=== PATIENT | female | born 1970 | race Caucasian/White ===

== ENCOUNTER 2021-05-10 16:04 | Outpatient (CLI) | payer OTHER, SELFPAY ==
--- NOTE | ~2021-05-10 | XR_ITS ---
XR lumbar spine 6V w bending DATE: 05/10/2021 16:38 INDICATION: Low back pain, sciatica TECHNIQUE: AP, lateral, coned lateral lumbosacral, bilateral oblique and flexion and extension latera l standing views. COMPARISON: None FINDINGS: There is normal alignment of the lumbar spine without instability on flexion or extension. There is a transitional fifth lumbar vertebra with sacralization pseudoarthrosis on the left and lumb arization on the right. This may be a source of chronic low back pain. Lumbar and lumbosacral interspaces appear well preserved. No spondylolisthesis. No fracture or bone destruction. Included lower thoracic and lumbar pedicles are intact. The sacroiliac joints are intact. IUD is noted overlying the mid pelvis. IMPRESSION: Transitional L5 lumbosacral vertebra Reviewed, dictated and finalized at location B. [employer]
== END 2021-05-10 16:05 ==
PROVIDERS: PCP Family Medicine; Visit Provider Family Medicine
DX: M54.42 Lumbago with sciatica, left side (principal)
CPT/HCPCS: 72114

== ENCOUNTER 2023-10-12 10:51 | Outpatient (CLI) | payer OTHER, SELFPAY ==
--- NOTE | ~2023-10-12 | MMUS_ITS ---
EXAMINATION: MM diag antonia implant BI w polly, US breast RT limited, US breast LT complete HISTORY: Possible implant rupture TECHNIQUE: 3-D tomosynthesis images of the bilateral breasts were performed and synthetic 2-D images were generated. CAD analysis was submitted and interpreted. High resolution limited bilateral breast ultrasound was performed. COMPARISON: 07/12/2011 BREAST PARENCHYMAL COMPOSITION:Not Dense. There are scattered areas of fibroglandular density. FINDINGS: MAMMOGRAPHIC FINDINGS: There is probable asymmetric fibroglandular tissue at the posterior upper, inner left breast, which r elatively effaces the spot compression. There is a 5 mm low-density circumscribed round mass at the i nner right breast. No suspicious mammographic abnormality seen. No distortion or suspicious microcalc ification seen. No overt mammographic evidence for implant rupture. ULTRASOUND: At the right wrist 3:00 position, 5 cm from the nipple, there is a 5 mm circumscribed wider than tall hypoechoic mass without posterior shadowing. This correlates with the mammographic finding, and is m ost consistent with a benign lesion. At the left breast 10:00 position, 15 cm from the nipple, there is a 2.2 x 1.3 x 0.5 cm lobulated pro bably hyperechoic region, which probably correlates with asymmetric fibroglandular tissue seen mammog raphically. No definite evidence of implant rupture seen. IMPRESSION: No definite mammographic evidence for malignancy. Probable benign findings in both breasts, as above . Six-month follow-up bilateral mammography advised to assure stability. No distinct evidence for implant rupture. Breast MR could be considered for further evaluation for im plant rupture, as indicated. BI-RADS category 3, probably benign findings. Reviewed, dictated and finalized at location M. IMPRESSION: No definite mammographic evidence for malignancy. Probable benign findings in both breasts, as above. Six-month follow-up bilateral mammography advised to as sure stability. No distinct evidence for implant rupture. Breast MR could be considered for fur ther evaluation for implant rupture, as indicated. BI-RADS category 3, probably benign findings. IMPRESSION: No definite mammographic evidence for malignancy. Probable benign findings in both breasts, as above. Six-month follow-up bilateral mammography advised to as sure stability. No distinct evidence for implant rupture. Breast MR could be considered for fur ther evaluation for implant rupture, as indicated. BI-RADS category 3, probably benign findings.
== END 2023-10-12 10:52 ==
PROVIDERS: PCP Family Medicine; Visit Provider Physician Assistant Medical
DX: N64.89 Other specified disorders of breast (principal); Z98.82 Breast implant status
CPT/HCPCS: 76641; 76642; 77062; 77066; G0279

== ENCOUNTER 2023-11-12 11:48 | Outpatient (CLI) | payer OTHER, SELFPAY ==
--- NOTE | ~2023-11-12 | MR_ITS ---
MR breast BI wo/w con 11/12/2023 14:29 CDT INDICATION: Evaluate breast implants status. Breast augmentation 2006. TECHNIQUE: MRI of the breasts perform using standard protocol pre-and post IV contrast with the follo wing sequences: Axial T2 STIR, axial T1, axial vibrant T1 with fat suppression precontrast and multip hasic postcontrast. T2 STIR sagittal images were performed with and without silicone saturation. COMPARISON: Comparison to multiple prior studies sequentially, with oldest reviewed study dated 07/2011. FINDINGS: There are no abnormalities on the precontrast sequences. There are bilateral subpectoral si licone implants. There is intracapsular rupture of both implants. No evidence for extracapsular ruptu re. There is mild background parenchymal enhancement. No enhancing lesions following contrast admini stration. No areas of enhancement meeting threshold criteria on CAD analysis. No evidence of signal abnormalities in the axillary or internal mammary node distributions. LEFT BREAST: No signal abnormalities on precontrast sequences. There are bilateral subpectoral silic one implants. There is intracapsular rupture of both implants. No evidence for extracapsular rupture. There is mild background parenchymal enhancement. No enhancing lesions following contrast administ ration. No areas of enhancement meeting threshold criteria on CAD analysis. No evidence of signal abnormalities in the axillary or internal mammary node distributions.] IMPRESSION: 1: No evidence for malignancy in either breast. 2: Bilateral intracapsular breast implant rupture. Recommend follow-up appropriate clinical manageme nt. Routine yearly screening mammogram and regular clinical breast examination are recommended. BI-RADS CATEGORY 2 - BENIGN FINDINGS Reviewed, dictated and finalized at location B. IMPRESSION: 1: No evidence for malignancy in either breast. 2: Bilateral intracapsular breast implant rupture. Recommend follow-up appropr iate clinical management. Routine yearly screening mammogram and regular clinical breast examination are recommended. BI-RADS CATEGORY 2 - BENIGN FINDINGS
== END 2023-11-12 11:49 | disposition home or self-care (01) ==
LOC: ANHIMG 11:52
PROVIDERS: PCP Family Medicine; Visit Provider Surgery
DX: N63.10 Unspecified lump in the right breast, unspecified quadrant (principal); N63.20 Unspecified lump in the left breast, unspecified quadrant; R92.8 Other abnormal and inconclusive findings on diagnostic imaging of breast; Z98.82 Breast implant status
CPT/HCPCS: 77049; A9577; C8908

== ENCOUNTER 2023-12-13 05:53 | Day surgery (SDC) | payer OTHER, SELFPAY ==
[2023-11-27 14:47] VITALS: BMI 26.2
[2023-12-13] VITALS (7 sets, daily range): BP systolic 109–166; BP diastolic 70–98; PULSE 73–93; RESP 13–18; TEMP 36.6–36.9; O2SAT 92–100; BMI 27.3
[2023-12-13] MEDS: LACTATED RINGERS 1,000 ML 30 ML IV CONT ×2 (06:53→09:13)
--- NOTE | 2023-12-13 06:56 | WPDANESEPPF ---
Anes - Initial Pre Proc Eval Procedure: Operation Date: 12/13/23 07:30 Proposed Procedures p Bilateral Breast Implant Removal with Capsulectomy - Bandar Stern MD Date/Time: 12/13/23 06:56 Surgeon: Bandar Stern MD Pre Op Diagnosis: Capsular Contracture of Breast Implants Patient Data Age: 53 Gender: F Height: 1.78 m Weight: 86.3 kg Last Vital Signs Temp 36.9 C 12/13/23 06:39 Pulse 76 12/13/23 06:39 Resp 16 12/13/23 06:39 BP 156/98 H 12/13/23 06:39 Pulse Ox 97 12/13/23 06:39 O2 Del Method Room Air 12/13/23 06:39 Allergies Allergy/AdvReac Type Severity Reaction Status Date / Time No Known Allergies Allergy Verified 12/13/23 06:36 Home Medications Medication Instructions Recorded Confirmed Type dextroamphetamine-amphetamine ER 20 mg PO DAILY 08/25/22 12/13/23 History 20 mg 24hr capsule,extend release (Adderall XR) levothyroxine 88 mcg tablet 88 mcg PO DAILY 11/27/23 12/13/23 History venlafaxine 75 mg capsule,extended 75 mg PO DAILY #90 caps 12/11/23 12/13/23 Rx release 24 hr Patient hx anesthesia problems: post op nausea/vomiting Family hx anesthesia problems: none Results Review: All pre-operative results and documents have been reviewed as part of the pre-operative evaluation. 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 Rhus dermatitis Surgical History Surgical History (Updated 10/12/23 @ 10:16 by KYRIE Figueroa) H/O tubal ligation Family History Family History (Updated 10/29/23 @ 09:07 by Casie Godfrey CMA) Father Diabetes mellitus Alcoholism Mother Hypertension Social History Social History Smoking status: Never smoker Second hand tobacco smoke exposure: Yes Alcohol intake: never Substance use: never Substance use type: does not use Do You Feel Safe in your Home?: Yes Lack of Transportation: No Lack of Food: Never True Current Housing: I Have Housing Concerned About Future Housing: No Difficulty Paying Gas/Electric Bills: No Difficulty Paying for Meds: No Currently Unemployed: No Education: High School Diploma/GED Difficulty w/ Childcare or Family Care: No Living arrangements: with family Spiritual care concerns: No Anes - Eval Final PreProcedure Day of Procedure 12/13/23 06:56 Patient weight: overweight Heart: regular rate and rhythm Lungs: clear to auscultation Airway: Mallampati scale class II Neurological: alert and oriented Last oral intake: >/= 8 hours ASA classification: II Emergent: no Anesthetic plan: proceed Anesthesia type and monitoring: general LMA and standard monitoring Results Review: All pre-operative results and documents have been reviewed as part of the pre-operative evaluation. Informed Consent: The patient's anesthetic plan and its attendant risks and benefits were discussed with the patient/family/POA. Questions were solicited and answers provided to the satisfaction of the patient/family/POA.
--- NOTE | 2023-12-13 07:14 | WPDHPUPDATE1 ---
History and Physical Update Update Date/Time: 12/13/23 07:14 Patient seen and examined in pre-operative holding area. No interval change in medical history or symptoms. Patient remembers previous discussion of benefits and alternatives to procedure. Continues to desire to proceed with bilateral breast implant removal and capsulectomy. I reviewed the risks including but not limited to bleeding ,infection, asymmetry, seroma, undesireable cosmetic appearance, partial/total skin/nipple loss, no change or worsening of symptoms, change in sensation. I discussed the possible use of assistants and their level of participation in the case. Patient stated understanding and signed the consent form wishing to proceed
--- NOTE | 2023-12-13 07:19 | W.PM.PROC2 ---
Procedure Note - Detailed Date of Procedure 12/13/23 Pre-op Diagnosis Capsular Contracture and intracapsular rupture of Breast Implants Post-op Diagnosis Same (bilateral silicone breast implant rupture) Procedure Performed left breast total capsulectomy and implant/contens removal and right breast partial capsulectomy and ruputre implant and contense removal with bilateral pec major muscle repair Surgeon Bandar Stern MD Cracking Machine Operator kalen domingo pa-c Anesthesia General Description of Procedure Patient was seen in the preoperative holding area where the breasts were marked consent form signed. Patient was taken back to the operating room placed on the table in the supine position. Time-out was performed with Anesthesia, surgeon, and staff agreeing on patient's name, site, and surgery to be performed. SCDs were placed on the lower extremities and inflated. Antibiotics were given IV. After general anesthesia was administered the breasts were prepped and draped in the usual sterile fashion. I took my attention to the left breast where I proceeded with making an incision along the inframammary fold of her left breast encompassing her previous mastopexy scar through skin and dermis with a 15 blade scalpel. Bovie cautery was then used to dissect through subcutaneous tissue down to the breast capsule. I proceeded with performing an EN bloc capsulectomy including the implant with Bovie cautery. The implants were noted to be placed below the pectoralis major muscle. A small hole was inadevertently made in the capsule during resection resulting in leakage of intracapsular ruptured silicone gel. After capsulectomy was completed the left breast pocket was irrigated with 1 L of normal saline. The pec major was repaired down to its original origin on the chest wall with 2-0 Vicryl suture to restore anatomy and maximize function. Hemostasis was obtained with Bovie cautery. A 10 Iraqi EMI drain was placed in the left breast pocket. Deep tissue and dermis was closed with 3-0 Vicryl suture. 4-0 Monocryl was used for subcuticular closure. Next I took my attention to the right breast where similar procedure was performed. I made an incision along the inframammary fold encompassing a portion of her previous mastopexy scar through skin and dermis with a 15 blade scalpel. Bovie cautery was then used to dissect through subcutaneous tissue down to the breast capsule. Due to scar and capsular adhesion to areas of the Pectoralis major muscle and chest wall, subtotal capsulectomy was performed with Bovie cautery to reduce morbidity to the pec muscle or chest wall if further resection was attempted. This resulted in exposure of the ruptured silicone implant. I proceeded with removal of all intracapsular contents including implant shell and gel. 1Liter of Normal saline was used for irrigation of this pocket. After hemostasis, the Pec major was repaired down to its tanana origin on the chest wall with 2-0 Vicryl suture. To restore anatomy and function and close off space. After irrigation and hemostasis a 10 Iraqi EMI drain was placed in the right breast pocket. 3-0 Vicryl suture was then used for deep and dermal closure followed by 4-0 Monocryl for subcuticular closure. I injected 20 cc of 1% lidocaine with epinephrine and 0.5% Marcaine plain along the inframammary fold and anterior axillary line of each breast. A dressing of Mastisol, Steri-Strips, 4 x 4, Tegaderm and ABDs was then applied followed by a surgical bra. The patient was awakened from anesthesia and transferred to the recovery room in stable condition. Complications: None estimated blood loss: 30 cc disposition: Patient tolerated the procedure well and will be going home later today Kalen Domingo PA-C was essential for positioning, retraction, hemostasis, irrigation, closure and dressing placement [facility] [place] Billing Surgery - Charge Forward: Surgery Billing [id number]
[2023-12-13] MEDS: ceFAZolin SODIUM 2 GM/20 ML SW SYRINGE IV PUSH (07:27)
[2023-12-13] MEDS: LIDO 1%/EPINEPHRINE 1:100,000 50 ML VIAL 20 ML INFILTRATE (08:37)
[2023-12-13] MEDS: fentaNYL CITRATE INJ (*CRX) 100 MCG/2 ML VIAL 25 MCG IV PUSH ×4 (09:11→09:40)
[2023-12-13] MEDS: oxyCODONE HCL (*CRX) 5 MG TAB IR PO (10:16)
--- NOTE | 2023-12-13 10:52 | SUR.PHASEII ---
1050 20cc bright red drainage emptied from EMI drain on right chest, and 20cc from EMI drain on left chest.
== END 2023-12-13 11:00 | disposition home or self-care (01) ==
PROVIDERS: PCP Family Medicine; Visit Provider Plastic Surgery
PROC: 0HPT0JZ Removal of Synthetic Substitute from Right Breast, Open Approach (ICD-10-PCS; CPT 19371; principal; 2023-12-13 07:30)
DX: T85.49XA Other mechanical complication of breast prosthesis and implant, initial encounter
CPT/HCPCS: 19371; 19370; 19330; 24341 ×2

== ENCOUNTER 2023-12-13 14:38 | Outpatient (NON) | payer OTHER, SELFPAY | END 2023-12-13 14:39 | disposition home or self-care (01) | LOC: ANHLAB 14:42 | PROVIDERS: PCP Family Medicine; Visit Provider Plastic Surgery | DX: T85.44XA Capsular contracture of breast implant, initial encounter (principal) | CPT/HCPCS: 88304 ==